=== PATIENT | female | born 1955 | race Caucasian/White ===

== ENCOUNTER → 2021-06-11 | Outpatient (CLI) | payer MEDICARE ==
--- NOTE | 2021-06-11 16:45 | KCIC ---
EXAM: XR CERVICAL SPINE 4-5V. HISTORY: Neck pain. COMPARISON: None. FINDINGS: There is <2 mm anterolisthesis at C4-5 and approximately 2 mm retrolisthesis at C5-6. This is degenerative from facet osteoarthritis. No fractures are identified. There is no prevertebral soft tissue swelling. Degenerative disc disease is mild from C3 through C5 and mild to moderate at C5-6. On the left, facet and uncovertebral osteoarthritis result in mild foraminal narrowing from C3 throug h C7. On the right, uncovertebral osteoarthritis results in mild foraminal narrowing from C5 through C7. IMPRESSION: 1. Slight anterolisthesis at C4-5 and slight retrolisthesis at C5-6 is likely degenerative from facet osteoarthritis. 2. Degenerative disc disease is mild from C3 through C5 and mild to moderate at C5-6. 3. Mild bilateral osseous foraminal narrowing as above. Electronically signed by: Leonard Darnell MD (06/11/2021 4:43 PM) [id number]
== END ==
LOC: KCIC 11:46
PROVIDERS: ATTEND Family Medicine
DX: M47.812 Spondylosis without myelopathy or radiculopathy, cervical region (principal); M50.31 Other cervical disc degeneration, high cervical region; M48.02 Spinal stenosis, cervical region; M43.12 Spondylolisthesis, cervical region
CPT/HCPCS: 72050